=== PATIENT | male | born 1995 | race Hispanic/Latino ===

== ENCOUNTER 2025-09-09 13:57 | Emergency (ER) | payer OTHER, SELFPAY ==
--- OUTSIDE RECORDS SUMMARY | 2025-09-09 14:15 | XMS_ITS | Clinical Summary ---
Author Organization [facility] Address [address] [place] [address] Care Team Providers Care Digital Account Executive Name Role Phone Unavailable Primary Care Provider Unavailabl e Source Comments NOTE: The information displayed by Care Everywhere is extracted from the complete medical record and may not identify all current or past patient conditions.[facility] Medications No known medications Active Problems No known active problems Immunizations Immunization Administration Dates Next Due *STANDARD DOSE SYRINGE* (FluLAVAL,FluZONE,FluARIX or AFLURIA) (6+ mos) QUAD 06/04/2016 DTaP (Diphtheria, Tetanus, a cellular Pertussis) 01/16/2001,12/19/1997,06/03/1997,03/22,1996 FluVIRIN (4+ years) Tri *VIAL* 07/28/2007 Hep A Pediatric (Hepatitis A) 04/18/2007 HepB, unspecified formulation 03/22/1997, 996,1996 Hib, unspecified formulation (Haemophilus Influenza Type B) 12/19/1997,06/03/1997,03/22/1997,06/07 IPV (Polio) 01/16/2001 MMR (Measles, Mumps, Rubella) 01/16/2001, 997 Meningococcal Conjugate Vacc ine (MENACTRA) 12/13/2011,04/18/2007 OPV, Trivalent 12/19/1997,03/22/1997,1996 Pfizer SARS-CoV-2 Vaccinatio n (12 + y/o) (PURPLE CAP) 05/04/2021,04/13/2021 Tdap (Tetanus, Diphtheria, a cellular Pertussis) 12/19/2017,04/18/2007 Varicella 07/28/2007,04/18/2007 Social History Tobacco Use Types Packs/Day Years Used Date Smoking Tobacco: Never Assessed Sex and Gender Information Value Date Recorded Sex Assigned at Not on file Legal Sex Male 2:45 PM PDT Gender Identity Male 06/29/2023 3:51 PM PDT Sexual Orientation Straight 06/29/2023 3: 51 PM PDT Plan of Treatment Health Maintenance Due Date Last Done Comments Adult HIV Screen (1-time) 2011 Hep C Screening (1-time) 2014 FLU VACCINE (#1) 05/13/2025 06/04/2016, 07/28/2007 Vaccine: [id number] (8 - T d or Tdap) 12/20/2027 12/19/2017, 04/18/2007, 01/16/2001, Additional history exists Advance Directives For more information, please contact: [phone] Documents on File Type Date Recorded 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
[2025-09-09 14:27] VITALS: BP 170/103; PULSE 73; RESP 20; TEMP 36.7; O2SAT 96; BMI 33.4
--- NOTE | 2025-09-09 14:38 | DI.RAD.S_ITS ---
PROCEDURE: XR HAND RT MIN 3V INDICATIONS: crush injury 3rd and 4th fingers TECHNIQUE: 4 views of the hand(s) acquired. COMPARISON: None. FINDINGS: Bones: Cortical irregularity and radiolucency involving radial aspect of 4th distal phalangeal tuft is seen. Carpal bones are normally aligned. No suspicious bony lesions. Soft tissues: No suspicious soft tissue calcifications. Soft tissue swelling surrounding distal portion of 3rd and 4th fingers are seen. No radiopaque foreign bodies are seen. IMPRESSION: Soft tissue swelling involving distal portion of 3rd and 4th fingers. Finding may represent a nondisplaced fracture involving radial aspect of 4th distal phalangeal tuft suggest clinical correlation and follow-up. No other fracture or dislocation. Dictated by: Suleman Antonio M.D. on 09/09/2025 at 14:57 Approved by: Suleman Antonio M.D. on 09/09/2025 at 14:59
--- NOTE | 2025-09-09 14:40 | ED.UPPEXIN ---
HPI - Extremity Injury (Upper) <Karuna Garcia PA-C - Last Filed: 09/09/25 19:33> General Chief Complaint: Extremity Injury, Upper Stated Complaint: Cut left middle finger L&I Time Seen by Provider: 09/09/25 14:08 Source: patient Mode of arrival: Ambulatory History of Present Illness HPI narrative: Mr. Bonds is a pleasant 30-year-old male with a past medical history of hypertension, right-hand dominant, who presents to the emergency department for crush injury of his right middle and ring finger that occurred about 1 hour ago while at work. Patient's right hand got closed in a trailer door. He now has avulsion to the pad of the right middle finger with bleeding that is controlled with pressure but is pulsatile upon removal of pressure. He also has pain and slight deformity of the distal and mid right 4th finger. He reports that he does have sensation intact to light touch on the tips of both fingers and no injuries to the remainder of the right hand. He does not take blood thinners. He is unsure of his last Tdap. No medications prior to arrival. Related Data Previous Rx's ?Medication ?Instructions ?Recorded cephalexin 500 mg capsule 500 mg PO TID 7 days #21 caps 09/09/25 Allergies Allergy/AdvReac Type Severity Reaction Status Date / Time No Known Drug Allergies Allergy Verified 09/09/25 14:27 Review of Systems <Karuna Garcia PA-C - Last Filed: 09/09/25 19:33> Review of Systems ROS Unobtainable: All systems reviewed & are unremarkable except as noted in HPI and below Patient History <Karuna Garcia PA-C - Last Filed: 09/09/25 19:33> Social History Smoking Status: Former smoker Smoking Status: Former smoker Exam <Karuna Garcia PA-C - Last Filed: 09/09/25 19:33> Narrative Exam Narrative: GENERAL: 30 year old patient appears stated age. Well-developed patient, in no acute distress. HEAD: Atraumatic. Normocephalic. EYES: No scleral icterus. No injection or drainage. NECK: Trachea midline. Cervical ROM intact. CARDIOVASCULAR: Regular rate. 2+ radial pulses bilaterally and brisk cap refill in all 10 fingertips. RESPIRATORY: ?Nonlabored respirations. ?Speaking in clear, full sentences. EXTREMITIES: RIGHT HAND: Patient has a flexion deformity at the 4th DIP with tenderness of the joint. Patient has superficial abrasions on the medial and lateral aspect of the D IP joint line but no laceration or bleeding wound. There is a subungual hematoma of the 4th fingernail. On the 3rd digit, the patient has complete avulsion of the pad of the distal phalanx. There is no visible bone and the tip of the finger and the nail are unaffected. Patient still has brisk cap refill on the distal fingertip and sensation intact to light touch on all fingertips. He is able to fully flex and extend at the 3rd D IP, PIP, MCP. He is able to flex and extend at the 4th PIP and MCP however he is unable to flex/extend at the 4th D IP due to the injury. NEURO: AOx3. ?Clear speech. ? SKIN: Avulsion laceration of the palmar aspect of the right 3rd distal and middle phalanx. Small superficial lacerations on medial and lateral side of 4th digit D IP joint line. Initial Vital Signs Initial Vital Signs: Vital Signs Temperature 98.1 F 09/09/25 14:27 Pulse Rate 73 09/09/25 14:27 Respiratory Rate 20 09/09/25 14:27 Blood Pressure 170/103 H 09/09/25 14:27 Pulse Oximetry 96 09/09/25 14:27 Oxygen Delivery Method Room Air 09/09/25 14:27 <Lisa Rodriguez DO - Last Filed: 09/10/25 09:18> Initial Vital Signs Initial Vital Signs: Vital Signs Temperature 98.1 F 09/09/25 14:27 Pulse Rate 73 09/09/25 14:27 Respiratory Rate 20 09/09/25 14:27 Blood Pressure 170/103 H 09/09/25 14:27 Pulse Oximetry 96 09/09/25 14:27 Oxygen Delivery Method Room Air 09/09/25 14:27 Procedures <Karuna Garcia PA-C - Last Filed: 09/09/25 19:33> Laceration Repair Laceration 1: Site: hand (distal pad of right 4th phalanx, avulsion laceration ) Size (cm): 3 Description: other (avulsion) Pre-repair: wound explored, irrigated extensively, deep structures intact and cleansed with chlorhexadine Skin layer suture size: 5-0 (Monocryl ) Number of sutures: 2 Technique: other (figure of 8) Nail Trephination Location (finger): right Location (toes): fourth digit Sterile prep: chlorhexidine Method of drainage: nail cautery Procedure successful: Yes Patient tolerated procedure: well Nerve Block Nerve Block 1: Local Anesthetic: bupivacaine 0.25% Amount of anesthesia used (mL): 4 Side: right Nerve Blocks: digital (4th) Procedure Successful: Yes Patient Tolerated Procedure: Well Complications: none Nerve Block 2: Local Anesthetic: bupivacaine 0.25% Amount of anesthesia used (mL): 4 Side: right Nerve Blocks: digital (3rd) Procedure Successful: Yes Patient Tolerated Procedure: Well Complications: none Course <Karuna Garcia PA-C - Last Filed: 09/09/25 19:33> Orders Ordered: Discontinued Medications Bacitracin (Bacitracin Oint 0.9 Gm Pckt) 1 applic TOP NOW ONE Stop: 09/09/25 16:39 Last Admin: 09/09/25 16:56 Dose: 1 applic Documented By: RLS Bupivacaine HCl (Bupivacaine 0.25% 50 Ml Mdv) 10 ml INJ INTRA-OP ONE Stop: 09/09/25 14:39 Last Admin: 09/09/25 15:06 Dose: 10 ml Documented By: AI Cephalexin HCl (Cephalexin 250 Mg Capsule) 500 mg PO NOW ONE Stop: 09/09/25 16:39 Last Admin: 09/09/25 16:56 Dose: 500 mg Documented By: RLS Diphtheria/Tetanus/Acell Pertussis (Tet,Diph,Pertuss(Acell),Vac/Pf 0.5 Ml Syringe) 0.5 ml IM .ONCE ONE Stop: 09/09/25 14:39 Last Admin: 09/09/25 16:59 Dose: 0.5 ml Documented By: BRY Vital Signs Vital signs: Vital Signs - 8 hr 09/09/25 14:27 Temperature 98.1 F Pulse Rate 73 Respiratory Rate 20 Blood Pressure 170/103 H Pulse Oximetry 96 Oxygen Delivery Method Room Air <Lisa Rodriguez DO - Last Filed: 09/10/25 09:18> Orders Ordered: Discontinued Medications Bacitracin (Bacitracin Oint 0.9 Gm Pckt) 1 applic TOP NOW ONE Stop: 09/09/25 16:39 Last Admin: 09/09/25 16:56 Dose: 1 applic Documented By: CHRISTINE Bupivacaine HCl (Bupivacaine 0.25% 50 Ml Mdv) 10 ml INJ INTRA-OP ONE Stop: 09/09/25 14:39 Last Admin: 09/09/25 15:06 Dose: 10 ml Documented By: BRY Cephalexin HCl (Cephalexin 250 Mg Capsule) 500 mg PO NOW ONE Stop: 09/09/25 16:39 Last Admin: 09/09/25 16:56 Dose: 500 mg Documented By: CHRISTINE Diphtheria/Tetanus/Acell Pertussis (Tet,Diph,Pertuss(Acell),Vac/Pf 0.5 Ml Syringe) 0.5 ml IM .ONCE ONE Stop: 09/09/25 14:39 Last Admin: 09/09/25 16:59 Dose: 0.5 ml Documented By: BRY Vital Signs Vital signs: Vital Signs - 8 hr 09/09/25 14:27 Temperature 98.1 F Pulse Rate 73 Respiratory Rate 20 Blood Pressure 170/103 H Pulse Oximetry 96 Oxygen Delivery Method Room Air MDM - Extremity Injury (Upper) <Karuna Garcia PA-C - Last Filed: 09/09/25 19:33> Medical Records Medical records narrative: None available. Imaging Data Right Hand XR: Radiologist's Impression: PROCEDURE: XR HAND RT MIN 3V INDICATIONS: crush injury 3rd and 4th fingers TECHNIQUE: 4 views of the hand(s) acquired. COMPARISON: None. FINDINGS: Bones: Cortical irregularity and radiolucency involving radial aspect of 4th distal phalangeal tuft is seen. Carpal bones are normally aligned. No suspicious bony lesions. Soft tissues: No suspicious soft tissue calcifications. Soft tissue swelling surrounding distal portion of 3rd and 4th fingers are seen. No radiopaque foreign bodies are seen. IMPRESSION: Soft tissue swelling involving distal portion of 3rd and 4th fingers. Finding may represent a nondisplaced fracture involving radial aspect of 4th distal phalangeal tuft suggest clinical correlation and follow-up. No other fracture or dislocation. Dictated by: Suleman Antonio M.D. on 09/09/2025 at 14:57 Approved by: Suleman Antonio M.D. on 09/09/2025 at 14:59 Right 4th Finger: Radiologist's Impression: PROCEDURE: XR FINGER RT MIN 2V INDICATIONS: distal fourth finger injury not well seen on hand XR TECHNIQUE: AP hand, 2 views of the 4th finger(s) acquired. COMPARISON: Same-day hand radiographs 09/09/2025. FINDINGS: Bones: Subtle lucency and cortical irregularity at the radial aspect of the 4th distal phalangeal tuft seen on oblique view may represent nondisplaced fracture. No suspicious bony lesions. Soft tissues: No suspicious soft tissue calcifications. IMPRESSION: Query nondisplaced 4th distal phalangeal tuft fracture along the radial aspect. Recommend correlation with point tenderness. Approved by: Radha Madrid M.D.,Ph.D. on 09/09/2025 at 15:46 MDM Narrative Medical decision making narrative: 30-year-old male with a past medical history of hypertension, right-hand dominant, who presents to emergency department for crush injury of his right middle and ring finger that occurred about 1 hour ago while at work. Differential diagnosis includes but isn't limited to digital artery laceration, open fracture, avulsion laceration, etc. On exam patient is in no acute distress, nontoxic appearing, vital signs appropriate with the exception of mildly elevated blood pressure. He has avulsion of his right middle finger distal finger pad, no visible bone but he does have laceration of 1 of the digital arteries that is bleeding. He also has a slight flexion deformity of his right 4th finger D IP joint with tenderness in this area. We will treat with digital blocks of the right 4th and 3rd fingers, obtain x-rays, update Tdap, and initiate cephalexin. X-ray reveals questionable nondisplaced 4th distal phalangeal tuft fracture along the radial aspect. No visualized fractures of the 3rd finger. Patient tolerated both digital blocks well. His fingers were cleansed and irrigated extensively using diluted Betadine. Bacitracin and a bandage were applied to the superficial abrasions on his 4th finger and the finger was then put into extension using an aluminum foam splint. Two 5-0 Monocryl sutures were used to stop bleeding of digital artery with success. After extensive cleansing, bacitracin Xeroform, and a nonadherent dressing were applied to the finger with no additional bleeding. Patient does not live locally, he lives in [place]. I did provide him with local orthopedic follow up but encouraged him to follow up with hand surgery for further management of his 4th finger fracture and his 3rd finger avulsion laceration. We discussed daily wound care, completion of antibiotics, splint use and strict ER return precautions. Patient verbalized understanding all information is agreeable with the plan. He is eager to go home, declines discharge vital signs, is ambulatory and has a ride home. L&I paperwork completed. Discharge Plan Departure Patient Disposition: Home Clinical Impression: Finger fracture, right Qualifiers: Encounter type: initial encounter Finger: ring finger Fracture type: closed Phalanx: distal Fracture alignment: nondisplaced Qualified Code(s): S62.664A - Nondisplaced fracture of distal phalanx of right ring finger, initial encounter for closed fracture Finger laceration Qualifiers: Encounter type: initial encounter Finger: middle finger Damage to nail status: without damage Foreign body presence: without foreign body Laterality: right Qualified Code(s): S61.212A - Laceration without foreign body of right middle finger without damage to nail, initial encounter Hematoma, subungual, finger Qualifiers: Encounter type: initial encounter Qualified Code(s): S60.10XA - Contusion of unspecified finger with damage to nail, initial encounter Instructions: DI for Finger Fracture, DI for Avulsion Laceration (Not Requiring Sutures) Activity Restrictions/Additional Instructions: Dear Cammie, Thank you for coming to the emergency department. Today you had an avulsion laceration to your right middle finger and a fracture of the tip of your 4th finger. Two absorbable sutures were used to stop a bleeding vessel on your middle finger. For your laceration, please keep it clean and covered for the next 24 hours and do not remove the dressing we applied. After 24 hours you may remove the dressing and gently clean the area with warm soapy water. Then dry off the wound and please apply bacitracin antibiotic ointment and gauze/tape or a bandage dressing to the wound. It is very important that you clean this wound and apply a new dressing 1 to 2 times a day every day until it is a scar. This may take multiple weeks. For your broken 4th fingertip, it is important that it the tip stays in full extension (straight) to allow it to heal. It is very important that you follow up with an orthopedic hand surgeon for further management. Please call your primary care doctor to refer you to a hand doctor as soon as possible. I have provided you with our local orthopedic doctor as well. Keep the wound clean and covered. Avoid soaking the wound in any water such as a bath, pool, or the ocean. If you develop any signs of wound infection such as increased redness, pus drainage, streaking redness, or fevers, please return to the ER immediately for evaluation. Once the wound has healed, apply sunscreen daily to reduce the appearance of scars. We updated your tetanus shot today. Please follow up with your primary care doctor within the next 2-3 days for ER follow-up. (If you do not have a PCP you can call [phone]. ?to schedule an appointment with an [facility] Primary Care Provider) IF YOU DEVELOP ANY NEW OR WORSENING SYMPTOMS, RETURN TO THE ER! Please read the attached instructions, they highlight more specific treatments and interventions for you at home. Thank you for letting me participate in your care, Karuna Garcia PA-C Prescriptions: New cephalexin 500 mg capsule 500 mg PO TID 7 Days Qty: 21 0RF Stand Alone Forms: Patient Portal/API ED Sign-out <Lisa Rodriguez, - Last Filed: 09/10/25 09:18> Cosign ED Attending Cosdestinature Attestation: I was available for consultation.
--- NOTE | 2025-09-09 15:19 | DI.RAD.S_ITS ---
PROCEDURE: XR FINGER RT MIN 2V INDICATIONS: distal fourth finger injury not well seen on hand XR TECHNIQUE: AP hand, 2 views of the 4th finger(s) acquired. COMPARISON: Same-day hand radiographs 09/09/2025. FINDINGS: Bones: Subtle lucency and cortical irregularity at the radial aspect of the 4th distal phalangeal tuft seen on oblique view may represent nondisplaced fracture. No suspicious bony lesions. Soft tissues: No suspicious soft tissue calcifications. IMPRESSION: Query nondisplaced 4th distal phalangeal tuft fracture along the radial aspect. Recommend correlation with point tenderness. Approved by: Radha Madrid M.D.,Ph.D. on 09/09/2025 at 15:46
[2025-09-09] MEDS: BACITRACIN OINT 0.9 GM PCKT 1 APPLIC TOP (16:56)
[2025-09-09] MEDS: TET,DIPH,PERTUSS(ACELL),VAC/PF 0.5 ML SYRINGE IM (16:59)
== END 2025-09-09 17:37 | disposition home or self-care (01) ==
PROVIDERS: Emergency Provider Physician Assistant
DX: S62.664A Nondisplaced fracture of distal phalanx of right ring finger, initial encounter for closed fracture (principal); S67.192A Crushing injury of right middle finger, initial encounter; S60.10XA Contusion of unspecified finger with damage to nail, initial encounter; I10 Essential (primary) hypertension; Z23 Encounter for immunization; W23.0XXA Caught, crushed, jammed, or pinched between moving objects, initial encounter
CPT/HCPCS: 73130; 73140; 99283; 90715